=== PATIENT | female | born 1970 | race Caucasian/White ===

== ENCOUNTER → 2017-05-31 | Outpatient (CLI) | payer BC ==
[~2017-05-31] MED LIST: CIPRO250 M1 PO; LISINOPRIL10 MG PO; NORCO 5-325 TA1 EACH PO; PROBIOTIC1 EAC1 PO; SENNA-S TABLET1 EACH PO; WORK EXCUSE
== END ==
LOC: RAD 13:18
DX: Z12.31 Encounter for screening mammogram for malignant neoplasm of breast (principal)

== ENCOUNTER → 2018-05-31 | Outpatient (CLI) | payer BC | LOC: RAD 11:01 | DX: Z12.31 Encounter for screening mammogram for malignant neoplasm of breast (principal) ==

== ENCOUNTER → 2019-07-16 | Outpatient (CLI) | payer BC | LOC: RAD 12:20 | DX: Z12.31 Encounter for screening mammogram for malignant neoplasm of breast (principal) ==